=== PATIENT | male | born 1965 | race African-American/Black ===

== ENCOUNTER 2018-07-16 12:57 | Emergency (ER) | payer OTHER ==
[~2018-07-16] VITALS: Ht 177.8 cm; Wt 70.3 kg
--- NOTE | 2018-07-16 13:19 | Emergency Room Report ---
History of Present Illness General Chief Complaint: Constipation Source: Patient Present Illness HPI 53-year-old male patient presents the ER complaining of constipationx1 day. Patient reports he was able to have one small bowel movement that was "less than usual" yesterday and he still feels "blocked up". Patient reports that began to experience abdominal cramps last night and extended in today. States he is not able to pass a bowel movement since that time. Denies diarrhea. Denies fever, chest pain, shortness of breath. Reports similar symptoms in the past. Reports has tried [id number]-fbheiar laxatives without relief of symptoms. Denies blood in stool. Denies other acute symptoms. Allergies: Coded Allergies: No Known Allergies (Unverified , 07/16/18) Patient History Past Medical History: see triage record Reviewed Nursing Documentation: PMH: Agreed; PSxH: Agreed Nursing Documentation-PMH Past Medical History: No History, Except For Review of Systems All Other Systems: negative except mentioned in HPI Physical Exam Vital Signs Date Time Temp Pulse Resp B/P (MAP) Pulse Ox O2 Delivery O2 Flow Rate FiO2 07/16/18 13:04 97.9 68 21 151/83 98 Room Air Sp02 EP Interpretation: reviewed, normal General Appearance: well appearing, no apparent distress, alert, GCS 15, non- toxic Head: normocephalic, atraumatic Eyes: bilateral eye normal inspection, bilateral eye PERRL ENT: hearing grossly normal, normal pharynx, no angioedema, normal voice, uvula midline, moist mucus membranes Neck: full range of motion Respiratory: lungs clear, normal breath sounds, no rhonchi, no respiratory distress, no accessory muscle use, no wheezing, speaking full sentences Cardiovascular #1: regular rate, rhythm, no edema Gastrointestinal: normal bowel sounds, non tender, soft, no mass, non-distended , no guarding, no pulsatile mass, no rebound Genitourinary: no CVA tenderness Musculoskeletal: back normal, digits/nails normal, gait/station normal, normal range of motion, non-tender Neurologic: alert, oriented x3, responsive, motor strength/tone normal, sensory intact Psychiatric: mood/affect normal Skin: no rash Lymphatic: no adenopathy Medical Decision Making PA Attestation Dr. Morel is my supervising Physician whom patient management has been discussed with. Diagnostic Impression: Primary Impression: Constipation ER Course Pt presents to ED c/o generalized abdominal pain and constipation. DDX considered but are not limited to cystitis, pyelonephritis, constipation. Low suspicion for appendicitis, no TTP at McBurney's point, negative Rovsing sign. VITAL SIGNS are WNL, patient is afebrile. ED INTERVENTIONS: Acetaminophen for pain. ER COURSE KUB disease per the preliminary reading. Provide patient with Rx for mag citrate. Advised to take one at home. Drink plenty of fluids. ER precautions given. Tylenol for pain symptoms. DISCHARGE: -Rx provided for Mg Citrate Rx provided for Tylenol Patient resting comfortably no acute distress, nontoxic-appearing, okay for outpatient treatment. Will provide with patient care instructions and any necessary prescriptions. Patient understands and agrees to treatment plan. Patient encouraged to drink plenty of fluids. Patient to take medication as instructed. Care plan and follow-up instructions provided. Patient questions asked and answered. 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 ER precautions given. Patient instructed to return to ER immediately for any new or worsening of symptoms. Including but not limited to fever, worsening pain , intractable vomiting. - Please note that this Emergency Department Report was dictated using [employer] trimmer technology software, occasionally this can lead to erroneous entry secondary to interpretation by the dictation equipment. Other X-Ray Diagnostic Results Other X-Ray Diagnostic Results : X-Ray ordered: KUB # of Views/Limited Vs Complete: 1 View Indication: Pain EP Interpretation: Yes PA Xray: Interpretation reviewed, by supervising MD, and agrees with findings. Interpretation: no dislocation, no soft tissue swelling, no fractures, nonspecific bowel gas Impression: No acute disease CARLOS Scribe Text Norberto Short PA-C Last Vital Signs Date Time Temp Pulse Resp B/P (MAP) Pulse Ox O2 Delivery O2 Flow Rate FiO2 07/16/18 13:04 97.9 68 21 151/83 98 Room Air Disposition: HOME, SELF-CARE Condition: Stable Scripts Acetaminophen* (TYLENOL EXTRA STRENGTH*) 500 Mg Tablet 500 MG ORAL Q8H PRN for Prn Headache/Temp > 101, #30 TAB 0 Refills Prov: Camron Short P.A. 07/16/18 Magnesium Citrate (MAGNESIUM CITRATE) 296 Ml Solution 296 ML PO DAILY, #296 ML Prov: Camron Short P.A. 07/16/18 Patient Instructions: Constipation, Adult Additional Instructions: Followup with primary care provider in 3 -5 days. Take medications as directed. Drink plenty of fluids. Patient questions asked and answered. ER precautions given, patient instructed to return to ER immediately for any new or worsening of symptoms. Camron Short Jul 16, 2018 13:19
[2018-07-16] MEDS ORDERED: TYLENOL EXTRA500 MG ORAL (13:53)
[2018-07-16] MEDS ORDERED: MAGNESIUM CITR296 M1 PO (13:53)
--- NOTE | 2018-07-16 13:57 | Diagnostic Imaging Report ---
Indication: Abdominal pain Comparison: None Single view of the abdomen obtained Findings: Bowel gas pattern is nonspecific. No mass, ectopic calcifications, or abnormal gas collections are identified. The bones are unremarkable. Impression: No acute findings
[2018-07-16 14:17] VITALS: BP 151/83
[2018-07-16 14:19] VITALS: BP 151/83
--- NOTE | 2018-07-16 14:22 | NUR ---
discharged home with instruction and rx follow up with pmd patient verbalize understanding
[2018-07-16] MEDS ORDERED: LACTULOSE20 GM/301 ORAL (22:51)
[2018-07-16] MEDS ORDERED: TYLENOL325 MG ORAL (22:51)
== END 2018-07-16 14:23 | disposition home or self-care (01) ==
LOC: EMR 13:37
DX: K59.00 Constipation, unspecified (principal)
CPT/HCPCS: 74018; 99283

== ENCOUNTER 2018-07-16 19:48 | Emergency (ER) | payer OTHER ==
[~2018-07-16] VITALS: Ht 177.8 cm; Wt 70.3 kg
[~2018-07-16 19:48] MED LIST: MAGNESIUM CITR296 M1 PO; TYLENOL EXTRA500 MG ORAL
--- NOTE | 2018-07-16 20:03 | NUR ---
ED Nurse Note: patient came into ED c/o of constipation, patient states that the last bowel movement he had was yesterday and it has been coming out in spurts, patient also complains of 10/10 lower abdomen pain, patient's asked the doctor for IV fluids due to patient "being more dehydrated more than dwight" patient is alert and oriented x4, ambulatory with a steady gait, VSS
[2018-07-16 20:10] VITALS: BP 133/92
[2018-07-16] MEDS ORDERED: Fleet's Mineral Oil Enema RECTAL ONE (20:45)
--- NOTE | 2018-07-16 21:36 | Emergency Room Report ---
History of Present Illness General Chief Complaint: Constipation Source: Patient Present Illness HPI Patient returns with complaint of constipation. He states he's blocked up and can't move his bowels. He was seen earlier today received bottle of magnesium citrate. He drank this 3 hours ago. He still feels blocked up. He states he hasn't moved his bowels but according to his girlfriend he has been moving his bowels daily. She states that he has a history of ulcers and is complaining about more abdominal pain that anything else. His pain in his right upper quadrant at the moment. It's constant He denies vomiting or hematemesis. Pain rated 10/10, pressure. Passing gas. When he was seen here before he had an x-ray done. No free air. Some gastric dilatation. Air into the rectum. No fevers, chills, chest pain, palpitations, vomiting, dysuria, abdominal pain, shortness of breath, depression, visual changes, headache. Slight rash on face. Apparently he took codeine 3 or 4 days ago which made the problem worse. Allergies: Coded Allergies: No Known Allergies (Unverified , 07/16/18) Patient History Past Medical History: see triage record Social History: Denies: smoking Social History Narrative With girlfriend Reviewed Nursing Documentation: PMH: Agreed; PSxH: Agreed Review of Systems All Other Systems: negative except mentioned in HPI Physical Exam Vital Signs Date Time Temp Pulse Resp B/P (MAP) Pulse Ox O2 Delivery O2 Flow Rate FiO2 07/16/18 20:03 80 18 133/92 97 Room Air Sp02 EP Interpretation: reviewed, normal General Appearance: well appearing, no apparent distress, GCS 15 Head: normocephalic Eyes: bilateral eye normal inspection, bilateral eye PERRL ENT: moist mucus membranes Neck: supple Respiratory: lungs clear, normal breath sounds Cardiovascular #1: regular rate, rhythm Cardiovascular #2: 2+ radial (R) Gastrointestinal: normal inspection, normal bowel sounds, no mass, non- distended, no guarding, no rebound, tenderness - right upper quadrant Genitourinary: no CVA tenderness Musculoskeletal: back normal, gait/station normal, normal range of motion Neurologic: alert, oriented x3, grossly normal Psychiatric: anxious Skin: warm/dry, other - Malar rash Medical Decision Making Diagnostic Impression: Primary Impression: Constipation Qualified Codes: K59.03 - Drug induced constipation Additional Impressions: Abdominal pain Qualified Codes: R10.11 - Right upper quadrant pain Proteinuria Qualified Codes: R80.9 - Proteinuria, unspecified ER Course Patient presents with constipation right upper quadrant discomfort and abdominal bloating. Differential includes bowel obstruction, pancreatitis, gastritis, hepatitis, constipation amongst others. X-ray was done which reveals no obstruction. The patient will be evaluated with labs and receive IV hydration. In addition to that he will receive fleets mineral oil enema. There is a nonsurgical abdomen at this time. EKG unremarkable. White count is normal. Electrolytes unremarkable. Urinalysis +4+ protein. Tox + opiates and THC. Patient improved after enema. IV hydration continued. Discussed with patient the association with codeine and constipation. Patient understands this. Patient stable for outpatient observation and treatment. Laboratory Tests Test 07/16/18 21:35 07/16/18 22:30 White Blood Count 5.9 K/UL (4.8-10.8) Red Blood Count 4.92 M/UL (4.70-6.10) Hemoglobin 14.1 G/DL (14.2-18.0) L Hematocrit 44.7 % (42.0-52.0) Mean Corpuscular Volume 91 FL (80-99) Mean Corpuscular Hemoglobin 28.8 PG (27.0-31.0) Mean Corpuscular Hemoglobin Concent 31.6 G/DL (32.0-36.0) L Red Cell Distribution Width 12.7 % (11.6-14.8) Platelet Count 319 K/UL (150-450) Mean Platelet Volume 5.5 FL (6.5-10.1) L Neutrophils (%) (Auto) 74.8 % (45.0-75.0) Lymphocytes (%) (Auto) 18.7 % (20.0-45.0) L Monocytes (%) (Auto) 5.2 % (1.0-10.0) Eosinophils (%) (Auto) 0.1 % (0.0-3.0) Basophils (%) (Auto) 1.2 % (0.0-2.0) Prothrombin Time 10.4 SEC (9.30-11.50) Prothrombin Time INR 1.0 (0.9-1.1) PTT 31 SEC (23-33) Sodium Level 138 MMOL/L (136-145) Potassium Level 4.0 MMOL/L (3.5-5.1) Chloride Level 97 MMOL/L (98-107) L Carbon Dioxide Level 30 MMOL/L (21-32) Anion Gap 11 mmol/L (5-15) Blood Urea Nitrogen 12 mg/dL (7-18) Creatinine 0.9 MG/DL (0.55-1.30) Estimate Glomerular Filtration Rate > 60 mL/min (>60) Glucose Level 121 MG/DL (74-106) H Calcium Level 10.4 MG/DL (8.5-10.1) H Total Bilirubin 0.3 MG/DL (0.2-1.0) Aspartate Amino Transferase (AST) 29 U/L (15-37) Alanine Aminotransferase (ALT) 22 U/L (12-78) Alkaline Phosphatase 82 U/L (46-116) Total Creatine Kinase 255 U/L (26-308) Troponin I 0.000 ng/mL (0.000-0.056) Total Protein 9.7 G/DL (6.4-8.2) H Albumin 3.8 G/DL (3.4-5.0) Globulin 5.9 g/dL Albumin/Globulin Ratio 0.6 (1.0-2.7) L Lipase 216 U/L (73-393) Serum Alcohol < 3 mg/dL Urine Color Yellow Urine Appearance Clear Urine pH 5 (4.5-8.0) Urine Specific [place] 1.030 (1.005-1.035) Urine Protein 4+ (NEGATIVE) H Urine Glucose (UA) Negative (NEGATIVE) Urine Ketones 1+ (NEGATIVE) H Urine Blood 1+ (NEGATIVE) H Urine Nitrite Negative (NEGATIVE) Urine Bilirubin Negative (NEGATIVE) Urine Urobilinogen Normal MG/DL (0.0-1.0) Urine Leukocyte Esterase Negative (NEGATIVE) Urine RBC 2-4 /HPF (0 - 0) H Urine WBC 0-2 /HPF (0 - 0) Urine Squamous Epithelial Cells None /LPF (NONE/OCC) Urine Bacteria Few /HPF (NONE) Urine Mucus Moderate /LPF (NONE/OCC) H Urine Opiates Screen Positive (NEGATIVE) H Urine Barbiturates Screen Negative (NEGATIVE) Phencyclidine (PCP) Screen Negative (NEGATIVE) Urine Amphetamines Screen Negative (NEGATIVE) Urine Benzodiazepines Screen Negative (NEGATIVE) Urine Cocaine Screen Negative (NEGATIVE) Urine Marijuana (THC) Screen Positive (NEGATIVE) H EKG Diagnostic Results Rate: normal Rhythm: NSR ST Segments: no acute changes Rhythm Strip Diag. Results EP Interpretation: yes Rhythm: NSR, no PVC's, no ectopy Other X-Ray Diagnostic Results Other X-Ray Diagnostic Results : X-Ray ordered: Abdomen # of Views/Limited Vs Complete: 2 View Indication: Other Interpretation: nonspecific bowel gas, no sbo, other - Large stomach bubble Impression: Other Electronically Signed by: Electronically signed by Piyush Cordoba MD Last Vital Signs Date Time Temp Pulse Resp B/P (MAP) Pulse Ox O2 Delivery O2 Flow Rate FiO2 07/16/18 23:00 98.0 85 18 135/88 97 Room Air Status: improved Disposition: HOME, SELF-CARE Condition: Improved Scripts Acetaminophen (Tylenol) 325 Mg Tablet 650 MG ORAL Q6H PRN for Prn Pain/Headache/Temp > 101, #20 TAB 0 Refills Prov: Piyush Cordoba MD 07/16/18 Lactulose (LACTULOSE*) 20 Gm/30 Ml Solution 30 ML ORAL BID PRN for Constipation, #240 ML 0 Refills Prov: Piyush Cordoba MD 07/16/18 Referrals: [facility],REFERRING (PCP) Piyush Cordoba MD Jul 16, 2018 21:36
[2018-07-16] MEDS ORDERED: Ketorolac 30mg Inj IV ONE (21:45)
[2018-07-16 22:05] LABS: BASOPHILS % (AUTO) 1.2 % (0.0-2.0); EOSINOPHILS % (AUTO) 0.1 % (0.0-3.0); HEMATOCRIT 44.7 % (42.0-52.0); HEMOGLOBIN 14.1 G/DL (14.2-18.0); LYMPHOCYTES % (AUTO) 18.7 % (20.0-45.0); MEAN CORPUSCULAR VOLUME 91 FL (80-99); MONOCYTES % (AUTO) 5.2 % (1.0-10.0); NEUTROPHILS % (AUTO) 74.8 % (45.0-75.0); PLATELET COUNT 319 K/UL (150-450); RED BLOOD COUNT 4.92 M/UL (4.70-6.10); RED CELL DISTRIBUTION WIDTH 12.7 % (11.6-14.8); WHITE BLOOD COUNT 5.9 K/UL (4.8-10.8)
[2018-07-16 22:19] LABS: ANION GAP 11 mmol/L (5-15); BLOOD UREA NITROGEN 12 mg/dL (7-18); CALCIUM 10.4 MG/DL (8.5-10.1); CARBON DIOXIDE 30 MMOL/L (21-32); CHLORIDE 97 MMOL/L (98-107); CREATININE 0.9 MG/DL (0.55-1.30); SODIUM 138 MMOL/L (136-145)
[2018-07-16 22:25] LABS: ALANINE AMINOTRANSFERASE 22 U/L (12-78); ALBUMIN 3.8 G/DL (3.4-5.0); ALBUMIN/GLOBULIN RATIO 0.6 (1.0-2.7); ALKALINE PHOSPHATASE 82 U/L (46-116); ASPARTATE AMINO TRANSFERASE 29 U/L (15-37); BILIRUBIN,TOTAL 0.3 MG/DL (0.2-1.0); CREATINE KINASE 255 U/L (26-308)
[2018-07-16 22:47] LABS: APPEARANCE,URINE CLEAR; BILIRUBIN, URINE NEGATIVE (NEGATIVE); COLOR,URINE YELLOW; GLUCOSE, URINE (UA) NEGATIVE (NEGATIVE); KETONES,URINE 1+ (NEGATIVE); LEUKOCYTE ESTERASE ,URINE NEGATIVE (NEGATIVE); NITRITE,URINE NEGATIVE (NEGATIVE); PH,URINE 5 (4.5-8.0); PROTEIN,URINE 4+ (NEGATIVE); UROBILINOGEN,URINE NORMAL MG/DL (0.0-1.0)
[2018-07-16] MEDS ORDERED: LACTULOSE20 GM/301 ORAL (22:51)
[2018-07-16] MEDS ORDERED: TYLENOL325 MG ORAL (22:51)
[2018-07-16 23:00] VITALS: BP 135/88
--- NOTE | 2018-07-16 23:00 | NUR ---
ED Nurse Note: patient is being discharged from ED after being cleared by ERMD, patient is alert and oriented x4, ambulatory with a steady gait, VSS. patient acknowledged the need to follow up with PMd within a week if symptoms dont improve, ID band and IV line removed
== END 2018-07-16 23:00 | disposition home or self-care (01) ==
LOC: EMR 20:25
DX: K59.03 Drug induced constipation (principal); R10.11 Right upper quadrant pain; R80.9 Proteinuria, unspecified; R21 Rash and other nonspecific skin eruption
CPT/HCPCS: 36415; 80053; 80307; 80329; 81003; 82550; 83690; 84484; 85025; 85610; 85730; 96361; 96374; 96375; 99284; J1885; S0028

== ENCOUNTER 2018-07-21 06:43 | Emergency (ER) | payer OTHER ==
[~2018-07-21] VITALS: Ht 177.8 cm; Wt 66.7 kg
[~2018-07-21 06:43] MED LIST changes: +LACTULOSE20 GM/301 ORAL; +TYLENOL325 MG ORAL
--- NOTE | 2018-07-21 07:08 | NUR ---
ED Nurse Note: IV access established. Blood drawn; sent down to lab.
[2018-07-21 07:10] VITALS: BP 120/88
--- NOTE | 2018-07-21 07:11 | NUR ---
ED Nurse Note: Pt presents to ED with c/o abd pain started 2 weeks ago RUQ. Came 2 days ago for same pain. no n/v/d. last BM 07/20/18. AO4. NAD. VSS. Attached to monitor. ERMD at bedside.
--- NOTE | 2018-07-21 07:12 | NUR ---
HAND-OFF: Report given to JENY Crum. Patient in stable condition. Plan of care endorsed.
[2018-07-21] MEDS ORDERED: Mylanta II UD 30ml ORAL ONE (07:15)
[2018-07-21] MEDS ORDERED: Dicyclomine HCl 10mg/5ml oral soln ORAL ONE (07:15)
[2018-07-21] MEDS ORDERED: Ketorolac 30mg Inj IV ONE (07:15)
[2018-07-21] MEDS ORDERED: Lidocaine 2% Visc 15ml soln ORAL ONE (07:15)
[2018-07-21] MEDS ORDERED: Isovue-300 100ml vial INJ PRN (07:15)
--- NOTE | 2018-07-21 07:18 | NUR ---
ED Nurse Note: Called radiology for barium contrast. Waiting.
[2018-07-21 07:22] LABS: BASOPHILS % (AUTO) 1.1 % (0.0-2.0); EOSINOPHILS % (AUTO) 0.3 % (0.0-3.0); HEMATOCRIT 43.9 % (42.0-52.0); LYMPHOCYTES % (AUTO) 26.8 % (20.0-45.0); MEAN CORPUSCULAR VOLUME 90 FL (80-99); MONOCYTES % (AUTO) 7.5 % (1.0-10.0); NEUTROPHILS % (AUTO) 64.4 % (45.0-75.0); PLATELET COUNT 350 K/UL (150-450); RED CELL DISTRIBUTION WIDTH 12.4 % (11.6-14.8); WHITE BLOOD COUNT 5.3 K/UL (4.8-10.8)
--- NOTE | 2018-07-21 07:25 | NUR ---
ED Nurse Note: Received report from Macho Stanford RN. Pt sleeping comfortably in bed. Waiting for raidology to bring barium. Will continue to monitor.
--- NOTE | 2018-07-21 07:31 | NUR ---
ED Nurse Note: Spoke w/ Rox from radiology regarding readi-cat. Waiting for radiology to bring it up. Will continue to monitor.
--- NOTE | 2018-07-21 07:37 | NUR ---
ED Nurse Note: Oral contrast has been given to pt.
[2018-07-21 07:43] LABS: ANION GAP 11 mmol/L (5-15); BLOOD UREA NITROGEN 13 mg/dL (7-18); CALCIUM 9.1 MG/DL (8.5-10.1); CARBON DIOXIDE 29 MMOL/L (21-32); CHLORIDE 98 MMOL/L (98-107); CREATININE 0.9 MG/DL (0.55-1.30); POTASSIUM 3.4 MMOL/L (3.5-5.1); SODIUM 137 MMOL/L (136-145)
[2018-07-21 07:47] LABS: ALANINE AMINOTRANSFERASE 18 U/L (12-78); ALBUMIN 3.1 G/DL (3.4-5.0); ALBUMIN/GLOBULIN RATIO 0.6 (1.0-2.7); ALKALINE PHOSPHATASE 70 U/L (46-116); ASPARTATE AMINO TRANSFERASE 20 U/L (15-37); BILIRUBIN,TOTAL 0.5 MG/DL (0.2-1.0)
--- NOTE | 2018-07-21 08:20 | NUR ---
ED Nurse Note: Urine has been collected and sent to lab.
[2018-07-21 08:41] LABS: APPEARANCE,URINE CLEAR; BILIRUBIN, URINE 1+ (NEGATIVE); GLUCOSE, URINE (UA) NEGATIVE (NEGATIVE); KETONES,URINE 2+ (NEGATIVE); LEUKOCYTE ESTERASE ,URINE 1+ (NEGATIVE); NITRITE,URINE NEGATIVE (NEGATIVE); PH,URINE 6 (4.5-8.0); PROTEIN,URINE 3+ (NEGATIVE); UROBILINOGEN,URINE 4 MG/DL (0.0-1.0)
[2018-07-21 08:49] LABS: COLOR,URINE YELLOW
--- NOTE | 2018-07-21 08:57 | Emergency Room Report ---
History of Present Illness General Chief Complaint: Abdominal Pain Source: Patient Present Illness HPI 53-year-old male presents ED for evaluation. Complaining of abdominal pain for the last 2 weeks. Localized to right, sharp, 8 out of 10, nonradiating. States he's been here twice for similar presentation. He was discharged on stool softeners and states they are not helping. Admits to using codeine that was prescribed to his mother for the pain. Denies nausea or vomiting. Denies fevers or chills. No other aggravating relieving factors. Denies any other associated symptoms Allergies: Coded Allergies: No Known Allergies (Unverified , 07/16/18) Patient History Past Medical History: none Past Surgical History: none Pertinent Family History: none Social History: Denies: smoking, alcohol use, drug use Immunizations: UTD Reviewed Nursing Documentation: PMH: Agreed; PSxH: Agreed Nursing Documentation-PMH Past Medical History: No History, Except For Review of Systems All Other Systems: negative except mentioned in HPI Physical Exam Vital Signs Date Time Temp Pulse Resp B/P (MAP) Pulse Ox O2 Delivery O2 Flow Rate FiO2 07/21/18 06:45 98.1 120 18 120/88 97 Room Air Sp02 EP Interpretation: reviewed, normal General Appearance: no apparent distress, alert, GCS 15, non-toxic Head: normocephalic, atraumatic Eyes: bilateral eye normal inspection, bilateral eye PERRL ENT: hearing grossly normal, normal pharynx, no angioedema, normal voice Neck: full range of motion, supple/symm/no masses Respiratory: chest non-tender, lungs clear, normal breath sounds, speaking full sentences Cardiovascular #1: regular rate, rhythm, no edema Cardiovascular #2: 2+ carotid (R), 2+ carotid (L), 2+ radial (R), 2+ radial (L) , 2+ dorsalis pedis (R), 2+ dorsalis pedis (L) Gastrointestinal: normal bowel sounds, soft, non-distended, no guarding, no rebound, tenderness Rectal: deferred Genitourinary: normal inspection, no CVA tenderness Musculoskeletal: back normal, gait/station normal, normal range of motion, non- tender Neurologic: alert, oriented x3, responsive, motor strength/tone normal, sensory intact, speech normal Psychiatric: judgement/insight normal, memory normal, mood/affect normal, no suicidal/homicidal ideation Reflexes: 3+ bicep (R), 3+ bicep (L), 3+ tricep (R), 3+ tricep (L), 3+ knee (R) , 3+ knee (L) Skin: normal color, no rash, warm/dry, well hydrated Lymphatic: no adenopathy Medical Decision Making Diagnostic Impression: Primary Impression: Cholecystitis ER Course Hospital Course 53-year-old M presents to ED with RUQ pain Differential diagnoses include: Appendicitis, cholecystitis, small bowel obstruction Clinical course Patient placed on stretcher. 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 After initial history and physical I ordered labs, IV fluids, UA, pain medication and CT Labs - leukocytosis noted, Hb/Hct stable. electrolytes ok. LFTs ok CT A/P - distended GB, ? cholecystitis there is no leukocytosis, no LFT elevation, no clinical evidence of biliary obstruction/jaundice Discussed with patient. Recommend admission. Patient states that he cannot be admitted today. Will follow-up with his PMD later today. understands the risks of leaving. Patient has competency to make his own decisions. Signed AMA form. Patient given copies of his labs and CT report I feel this is a highly complex case requiring extensive working including EKG/ Rhythm strip, Xray/CT/US, Blood/urine lab work, repeat exams while in ED, and administration of strong opiates/narcotics for pain control, admission to hospital or close patient follow up. Diagnosis - cholecystitis patient left AMA Labs Test 07/21/18 07:05 07/21/18 08:13 White Blood Count 5.3 K/UL (4.8-10.8) Red Blood Count 4.90 M/UL (4.70-6.10) Hemoglobin 14.0 G/DL (14.2-18.0) Hematocrit 43.9 % (42.0-52.0) Mean Corpuscular Volume 90 FL (80-99) Mean Corpuscular Hemoglobin 28.6 PG (27.0-31.0) Mean Corpuscular Hemoglobin Concent 31.9 G/DL (32.0-36.0) Red Cell Distribution Width 12.4 % (11.6-14.8) Platelet Count 350 K/UL (150-450) Mean Platelet Volume 5.4 FL (6.5-10.1) Neutrophils (%) (Auto) 64.4 % (45.0-75.0) Lymphocytes (%) (Auto) 26.8 % (20.0-45.0) Monocytes (%) (Auto) 7.5 % (1.0-10.0) Eosinophils (%) (Auto) 0.3 % (0.0-3.0) Basophils (%) (Auto) 1.1 % (0.0-2.0) Sodium Level 137 MMOL/L (136-145) Potassium Level 3.4 MMOL/L (3.5-5.1) Chloride Level 98 MMOL/L (98-107) Carbon Dioxide Level 29 MMOL/L (21-32) Anion Gap 11 mmol/L (5-15) Blood Urea Nitrogen 13 mg/dL (7-18) Creatinine 0.9 MG/DL (0.55-1.30) Estimat Glomerular Filtration Rate > 60 mL/min (>60) Glucose Level 96 MG/DL (74-106) Calcium Level 9.1 MG/DL (8.5-10.1) Total Bilirubin 0.5 MG/DL (0.2-1.0) Aspartate Amino Transf (AST/SGOT) 20 U/L (15-37) Alanine Aminotransferase (ALT/SGPT) 18 U/L (12-78) Alkaline Phosphatase 70 U/L (46-116) Total Protein 8.7 G/DL (6.4-8.2) Albumin 3.1 G/DL (3.4-5.0) Globulin 5.6 g/dL Albumin/Globulin Ratio 0.6 (1.0-2.7) Lipase 81 U/L (73-393) Urine Color Yellow Urine Appearance Clear Urine pH 6 (4.5-8.0) Urine Specific [place] 1.020 (1.005-1.035) Urine Protein 3+ (NEGATIVE) Urine Glucose (UA) Negative (NEGATIVE) Urine Ketones 2+ (NEGATIVE) Urine Blood 1+ (NEGATIVE) Urine Nitrite Negative (NEGATIVE) Urine Bilirubin 1+ (NEGATIVE) Urine Ictotest Negative (NEGATIVE) Urine Urobilinogen 4 MG/DL (0.0-1.0) Urine Leukocyte Esterase 1+ (NEGATIVE) Urine RBC 2-4 /HPF (0 - 0) Urine WBC 0-2 /HPF (0 - 0) Urine Squamous Epithelial Cells Occasional /LPF Urine Bacteria Few /HPF (NONE) Urine Mucus Moderate /LPF (NONE/OCC) CT/MRI/US Diagnostic Results CT/MRI/US Diagnostic Results : Imaging Test Ordered: CT A/P Impression Cholelithiasis. Markedly edematous gallbladder wall is worrisome for acute cholecystitis. Correlate with clinical findings, consider nuclear medicine hepatobiliary scan for further evaluation Last Vital Signs Date Time Temp Pulse Resp B/P (MAP) Pulse Ox O2 Delivery O2 Flow Rate FiO2 07/21/18 07:10 98.1 84 18 120/88 97 Room Air Status: unchanged Disposition: AGAINST MEDICAL ADVICE Condition: Stable Referrals: NOT CHOSEN [facility]/,REFERRING (PCP) Destin Morel MD Jul 21, 2018 08:57
--- NOTE | 2018-07-21 09:19 | NUR ---
ED Nurse Note: Tried calling for CT. No answer. Will try again later.
--- NOTE | 2018-07-21 09:21 | NUR ---
ED Nurse Note: Pt went down to CT.
[2018-07-21 09:27] VITALS: BP 108/66
--- NOTE | 2018-07-21 09:42 | NUR ---
ED Nurse Note: Pt came back from CT.
--- NOTE | 2018-07-21 10:03 | Diagnostic Imaging Report ---
Clinical Indication: Abdominal pain for the last 2 weeks Technique: Patient given oral contrast. IV administration nonionic contrast. Venous phase spiral acquisition obtained through the abdomen and pelvis. Multiplanar reconstructions were generated. Total dose length product 489.94 mGycm. CTDIvol(s) 10.82 mGy. Dose reduction achieved using automated exposure control Comparison: none Findings: The gallbladder is distended, and the wall is markedly edematous. There are multiple cholesterol stones within the gallbladder. The bile ducts are nondilated. The liver, pancreas, spleen, adrenals, kidneys, ureters are unremarkable. The bladder demonstrates an unusual protrusion into the floor. This protrusion appears to contain a small cyst. The prostate does not appear particularly enlarged. No pelvic adenopathy demonstrated. The GI tract is well opacified with contrast. Contrast is seen as far distally as the splenic flexure of the colon. No small bowel distention or small bowel wall thickening. What is probably a normal appendix is visualized. No free or loculated intraperitoneal gas or fluid is evident. The distal esophagus, stomach, duodenum are unremarkable. The included lung bases demonstrate posterior dependent atelectatic changes on the right. The bones demonstrate bilateral L5 spondylolysis, grade 1-2 L5 on S1 spondylolisthesis and secondary degenerative change Impression: Cholelithiasis. Markedly edematous gallbladder wall is worrisome for acute cholecystitis. Correlate with clinical findings, consider nuclear medicine hepatobiliary scan for further evaluation Unusual a fingerlike protrusion into the bladder floor which contains a cyst. Appearance not typical of enlarged prostate protruding into the bladder floor, and further evaluation with ultrasound or cystoscopy should be considered Well-opacified GI tract. No evidence of acute GI tract abnormality Bilateral L5 spondylolysis, grade 1-2 L5 on S1 spondylolisthesis and secondary degenerative change The CT scanner at [facility] is accredited by the [employer] and the scans are performed using protocols designed to limit radiation exposure to as low as reasonably achievable to attain images of sufficient resolution adequate for diagnostic evaluation.
[2018-07-21] MEDS ORDERED: Piperacillin/Tazobactam 3.375 GM in NS 110 ML IVPB ONE (10:15)
--- NOTE | 2018-07-21 10:20 | NUR ---
ED Nurse Note: Pt decided to go AMA. ERMD at the bedside and explained consequences. Pt signed AMA form. No acute distress noted. ID band and IV site removed. Left with all belongings. Left ER w/ steady gait. IV atb zosyn not administered due to pt going AMA and declining medication.
[2018-07-21 10:22] VITALS: BP 120/86
[2018-07-21] MEDS ORDERED: NKM (20:44)
== END 2018-07-21 10:22 | disposition left against medical advice (07) ==
LOC: EMR 07:32
DX: K81.9 Cholecystitis, unspecified (principal); D72.829 Elevated white blood cell count, unspecified
CPT/HCPCS: 36415; 74177; 80053; 81003; 83690; 85025; 96361; 96374; 96375; 99284; J1885; J2405; J2543; Q9967; S0028

== ENCOUNTER 2018-07-21 20:34 | Emergency (ER) | payer OTHER ==
[~2018-07-21] VITALS: Ht 177.8 cm; Wt 65.8 kg
[2018-07-21] MEDS ORDERED: NKM (20:44)
[2018-07-21 20:50] VITALS: BP 118/80
--- NOTE | 2018-07-21 20:50 | NUR ---
ED Nurse Note: Patient presents to ED c/o upper right abdominal pain. patient states he was here and was supposed to be admitted for cholecystitis this AM. Patient left AMA. Patient returned due to pain increasing. pt complaining of right upper abdominal pain. denies vomiting. will continue to monitor.
[2018-07-21] MEDS ORDERED: HYDROmorphone 1mg/ml Carpuject IVP ONE (22:45)
[2018-07-21] MEDS ORDERED: Piperacillin/Tazobactam 3.375 GM in NS 110 ML IVPB ONE (22:45)
[2018-07-21 23:09] LABS: BASOPHILS % (AUTO) 1.4 % (0.0-2.0); EOSINOPHILS % (AUTO) 0.6 % (0.0-3.0); HEMATOCRIT 34.5 % (42.0-52.0); LYMPHOCYTES % (AUTO) 26.2 % (20.0-45.0); MEAN CORPUSCULAR VOLUME 91 FL (80-99); NEUTROPHILS % (AUTO) 64.8 % (45.0-75.0); PLATELET COUNT 301 K/UL (150-450); RED BLOOD COUNT 3.81 M/UL (4.70-6.10); RED CELL DISTRIBUTION WIDTH 12.5 % (11.6-14.8); WHITE BLOOD COUNT 4.9 K/UL (4.8-10.8)
[2018-07-21 23:21] LABS: ANION GAP 8 mmol/L (5-15); BLOOD UREA NITROGEN 17 mg/dL (7-18); CALCIUM 8.5 MG/DL (8.5-10.1); CARBON DIOXIDE 28 MMOL/L (21-32); CHLORIDE 100 MMOL/L (98-107); CREATININE 0.8 MG/DL (0.55-1.30); POTASSIUM 4.2 MMOL/L (3.5-5.1); SODIUM 135 MMOL/L (136-145)
[2018-07-21 23:25] LABS: ALANINE AMINOTRANSFERASE 12 U/L (12-78); ALBUMIN 2.7 G/DL (3.4-5.0); ALBUMIN/GLOBULIN RATIO 0.6 (1.0-2.7); ALKALINE PHOSPHATASE 59 U/L (46-116); ASPARTATE AMINO TRANSFERASE 16 U/L (15-37); BILIRUBIN,TOTAL 0.3 MG/DL (0.2-1.0)
--- NOTE | 2018-07-21 23:27 | NUR ---
ED Nurse Note: went down to us with tech.
--- NOTE | 2018-07-22 00:14 | Emergency Room Report ---
History of Present Illness General Chief Complaint: Abdominal Pain Source: Patient, Family Member, Medical Record Present Illness HPI Is a 53-year-old male with history of right upper quadrant pain for last 3 weeks. His been persistent. He was here earlier today and had CT scan done which show and large gallbladder with cholecystitis. Patient signed out AMA because he wanted go through his primary care doctor first. Unable to get into his primary care Dr. and still with persistent pain. He has nausea and vomiting. Pain radiating to the back. The fever chills but no diarrhea. No history of alcohol. He came back because of the severe pain. Pain is 10 out of 10. Allergies: Coded Allergies: SULFA (SULFONAMIDE ANTIBIOTICS) (Verified Allergy, Unknown, 07/21/18) Patient History Past Medical History: see triage record, old chart reviewed Past Surgical History: other Pertinent Family History: none Social History: Denies: smoking Immunizations: other Reviewed Nursing Documentation: PMH: Agreed; PSxH: Agreed Review of Systems Eye: Denies: eye pain, blurred vision ENT: Denies: ear pain, nose congestion, throat swelling Respiratory: Denies: cough, shortness of breath Cardiovascular: Denies: chest pain, palpitations Gastrointestinal: Reports: abdominal pain; Denies: diarrhea, nausea, vomiting Musculoskeletal: Denies: back pain, joint pain Skin: Denies: rash Neurological: Denies: headache, numbness Endocrine: Denies: increased thirst, increased urine Hematologic/Lymphatic: Denies: easy bruising All Other Systems: negative except mentioned in HPI Physical Exam Vital Signs Date Time Temp Pulse Resp B/P (MAP) Pulse Ox O2 Delivery O2 Flow Rate FiO2 07/21/18 20:40 98.2 90 16 118/80 98 Room Air vitals normal Sp02 EP Interpretation: reviewed, normal General Appearance: well appearing, no apparent distress, alert Head: normocephalic, atraumatic Eyes: bilateral eye PERRL, bilateral eye EOMI ENT: hearing grossly normal, normal pharynx Neck: full range of motion, supple, no meningismus Respiratory: chest non-tender, lungs clear, normal breath sounds Cardiovascular #1: regular rate, rhythm, no murmur Gastrointestinal: normal bowel sounds, non tender, no mass, no organomegaly, no bruit, non-distended, tenderness - Right upper quadrant Musculoskeletal: back normal, gait/station normal, normal range of motion Psychiatric: mood/affect normal Skin: warm/dry Medical Decision Making Diagnostic Impression: Primary Impression: Cholecystitis ER Course Patient with acute cholecystitis. This was seen on ultrasound and CT scan. Labs unremarkable. Zosyn given here. Pain is well-controlled. I contacted Dr. Prado who accepted patient for transfer to [facility]. Patient is agreeable to transfer. Laboratory Tests Test 07/21/18 22:44 White Blood Count 4.9 K/UL (4.8-10.8) Red Blood Count 3.81 M/UL (4.70-6.10) L Hemoglobin 11.0 G/DL (14.2-18.0) L Hematocrit 34.5 % (42.0-52.0) L Mean Corpuscular Volume 91 FL (80-99) Mean Corpuscular Hemoglobin 29.0 PG (27.0-31.0) Mean Corpuscular Hemoglobin Concent 31.9 G/DL (32.0-36.0) L Red Cell Distribution Width 12.5 % (11.6-14.8) Platelet Count 301 K/UL (150-450) Mean Platelet Volume 5.2 FL (6.5-10.1) L Neutrophils (%) (Auto) 64.8 % (45.0-75.0) Lymphocytes (%) (Auto) 26.2 % (20.0-45.0) Monocytes (%) (Auto) 7.0 % (1.0-10.0) Eosinophils (%) (Auto) 0.6 % (0.0-3.0) Basophils (%) (Auto) 1.4 % (0.0-2.0) Sodium Level 135 MMOL/L (136-145) L Potassium Level 4.2 MMOL/L (3.5-5.1) Chloride Level 100 MMOL/L (98-107) Carbon Dioxide Level 28 MMOL/L (21-32) Anion Gap 8 mmol/L (5-15) Blood Urea Nitrogen 17 mg/dL (7-18) Creatinine 0.8 MG/DL (0.55-1.30) Estimat Glomerular Filtration Rate > 60 mL/min (>60) Glucose Level 84 MG/DL (74-106) Calcium Level 8.5 MG/DL (8.5-10.1) Total Bilirubin 0.3 MG/DL (0.2-1.0) Aspartate Amino Transf (AST/SGOT) 16 U/L (15-37) Alanine Aminotransferase (ALT/SGPT) 12 U/L (12-78) Alkaline Phosphatase 59 U/L (46-116) Total Protein 7.6 G/DL (6.4-8.2) Albumin 2.7 G/DL (3.4-5.0) L Globulin 4.9 g/dL Albumin/Globulin Ratio 0.6 (1.0-2.7) L Lipase 176 U/L (73-393) Lab Results Impression labs unremarkable CT/MRI/US Diagnostic Results CT/MRI/US Diagnostic Results : Imaging Test Ordered: Ultrasound Impression Read by radiologist. Distended gallbladder with multiple stones. Prominent gallbladder wall thickening and positive Sen sign. Minimal pericholecystic fluid. Finding consistent with cholecystitis Last Vital Signs Date Time Temp Pulse Resp B/P (MAP) Pulse Ox O2 Delivery O2 Flow Rate FiO2 07/21/18 20:40 98.2 90 16 118/80 98 Room Air Status: improved Disposition: ER [facility] Condition: Stable Referrals: [facility],REFERRING (PCP) Vick Barnett MD Jul 22, 2018 00:13
[2018-07-22] MEDS ORDERED: HYDROmorphone 1mg/ml Carpuject IVP ONE (01:00)
[2018-07-22 01:45] VITALS: BP 115/75
--- NOTE | 2018-07-22 01:45 | NUR ---
ED Nurse Note: pt is tranfered to [facility] report given to iliana. pt left with vital signs stable
--- NOTE | 2018-07-22 11:39 | Diagnostic Imaging Report ---
Indication:Abdominal pain Technique: Grayscale and duplex Doppler imaging of the abdomen performed. Comparison: None Findings: There is a marked wall thickening with innumerable gallstones positive sonographic Sen's suggestive of cholecystitis. CBD is 2.2 mm. The liver is unremarkable. Aorta is calcified. The demonstrated part of the pancreas is unremarkable. There is no ascites. Portal vein is patent by Doppler examination. The kidneys and spleen appear unremarkable. IMPRESSION: Suspected acute cholecystitis as discussed above. Please refer to the CT report
== END 2018-07-22 01:45 | disposition short-term general hospital (02) ==
LOC: EMR 21:17
DX: K81.9 Cholecystitis, unspecified (principal); Z88.2 Allergy status to sulfonamides
CPT/HCPCS: 36415; 76700; 80053; 83690; 85025; 96361; 96365; 96375; 99285; J1170; J2405; J2543